=== PATIENT | male | born 1955 | race Caucasian/White ===

== ENCOUNTER 2019-04-13 09:14 | Inpatient (IN) | payer MEDICARE, OTHER ==
[2019-04-13] MEDS ORDERED: NS 0.9% 1000 ML** 1,000 ML IV ONE (09:37)
[2019-04-13] MEDS ORDERED: Clindamycin 900 MG/D5W BAG(*) 900 MG/50 ML BAG IVPB ONE (09:56)
--- NOTE | 2019-04-13 10:01 | ED ---
Skin Complaint - HPI Summary HPI Summary: Pt. is a 63 y.o male who presents to the ER for wound and redness to left great toe x 3 days. Pt. notes a yellow drainage. Pt. has a hx of DM, HLD, depression, and GERD. Pt. Pt. notes he receives his care at an outside hospital in [place]. Pt. states he is chronically on penicillin PO BID prophylactically for cellulitis. Pt. denies injury, fever, vomiting. Sxs are moderate in severity. No current modifying factors. - History of Current Complaint Chief Complaint: EDDiabeticProb Time Seen by Provider: 04/13/19 09:26 Stated Complaint: INFECTED TOE PER PT Hx Obtained From: Patient Pain Intensity: 0 - Allergy/Home Medications Allergies/Adverse Reactions: Allergies Allergy/AdvReac Type Severity Reaction Status Date / Time ketorolac [From Toradol] Allergy Swelling Verified 04/13/19 09:21 Of Face,Lips,& Throat morphine Allergy Nausea And Verified 04/13/19 09:21 Vomiting vancomycin Allergy See Comment Verified 04/13/19 09:21 PMH/Surg Hx/FS Hx/Imm Hx Previously Healthy: Yes Infectious Disease History: No Infectious Disease History: Denies: Traveled Outside the [place] in Last 30 Days - Social History Alcohol Use: None Substance Use Type: Reports: None Smoking Status (MU): Never Smoked Tobacco Review of Systems Constitutional: Negative Negative: Fever, Chills Cardiovascular: Negative Respiratory: Negative Gastrointestinal: Negative Positive: Other - wound and redness to left great toe. Positive: Other - wound and redness to left great toe. All Other Systems Reviewed And Are Negative: Yes Physical Exam Triage Information Reviewed: Yes Vital Signs On Initial Exam: Initial Vitals Temp Pulse Resp BP Pulse Ox 97.4 F 108 18 118/95 96 04/13/19 09:15 04/13/19 09:15 04/13/19 09:15 04/13/19 09:15 04/13/19 09:15 Vital Signs Reviewed: Yes Appearance: Positive: Well-Appearing - Pt. sitting up in bed in NAD. Pleasant. Skin: Positive: Warm, Dry Head/Face: Positive: Normal Head/Face Inspection Eyes: Positive: Normal, EOMI Neck: Positive: Supple Respiratory/Lung Sounds: Positive: Clear to Auscultation, Breath Sounds Present Cardiovascular: Positive: Normal, RRR Musculoskeletal: Positive: Other - Marked erythema and edema to left great toe. Two small wet ulcers to left great toe with yellowish drainage. Good palpable pedal pulse. Chronic discoloration to lower leg. Neurological: Positive: Normal, CN Intact II-III Psychiatric: Positive: Affect/Mood Appropriate Procedures - Sedation Patient Received Moderate/Deep Sedation with Procedure: No Diagnostics - Vital Signs Vital Signs Temp Pulse Resp BP Pulse Ox 04/13/19 09:15 97.4 F 108 18 118/95 96 - Laboratory Result Diagrams: 04/13/19 09:57 04/13/19 09:57 Lab Statement: Any lab studies that have been ordered have been reviewed, and results considered in the medical decision making process. Course/Dx - Course Course Of Treatment: Pt. with infected ulcer to left great toe. Afebrile and well appearing. Mildly tachycardic. Labs and xrays obtained. Pt. given a dose of IV clindamycin to cover MRSA. CBC unremarkable. CRP elevated. Glucose mildly elevated. Xray shows tuft fx and questionable osteo per radiology. Given extend of infection and ?osteo hospitalist was consulted for admission. Case discussed with Dr. Haro who will accept pt. for admission. - Differential Diagnoses - Skin Complaint Differential Diagnoses: Abscess, Cellulitis, MRSA, Systemic Illness - Diagnoses Provider Diagnoses: Infected ulcer of skin, Osteomyelitis Discharge ED - Sign-Out/Discharge Documenting (check all that apply): Patient Departure - Discharge Plan Condition: Stable Disposition: ADMITTED TO [facility] - Billing Disposition and Condition Condition: STABLE Disposition: Admitted to [facility] - Attestation Statements Provider Attestation: I was available for consult. This patient was seen by the [facility]. The patient was not presented to, seen by, or examined by me. Kerwin Magallanes MD
[2019-04-13 10:11] LABS: ABS Basophils 0.1 10^3/ul (0-0.2); ABS Eosinophils 0.1 10^3/ul (0-0.6); ABS Lymphocytes 1.5 10^3/ul (1.0-4.8); ABS Monocytes 0.8 10^3/ul (0-0.8); ABS Neutrophils 4.5 10^3/ul (1.5-7.7); Eosinophil % 1.4 %; Hematocrit 44 % (42-52); Lymphocyte % 21.2 %; Mean Corpuscular HGB Conc 34 g/dL (31-36); Mean Corpuscular Hemoglobin 30 pg (27-31); Mean Corpuscular Volume 87 fL (80-94); Mean Platelet Volume 7.5 fL (7.4-10.4); Nucleated Red Blood Cells % 0.1; Platelet Count 254 10^3/uL (150-450); Red Blood Count 5.07 10^6 /uL (4.18-5.48); Red Cell Distribution Width 13 % (10-15)
[2019-04-13 10:26] LABS: C Reactive Protein 100.44 mg/L (<8.01)
[2019-04-13 11:06] LABS: Albumin 4.1 g/dL (3.2-5.2); Albumin/Globulin Ratio 1.1 (1-3); BUN/Creatinine Ratio 20.4 (8-20); Calcium 9.3 mg/dL (8.6-10.3); EGFR African American 99.9 (>60); EGFR Non-African American 82.6 (>60); Globulin 3.6 g/dL (2-4); Potassium 4.1 mmol/L (3.5-5.0); Total Bilirubin 0.9 mg/dL (0.2-1.0); Total Protein 7.7 g/dL (6.4-8.9)
[2019-04-13] MEDS ORDERED: Acetaminophen TAB* 325 MG PO PRN (12:54)
[2019-04-13] MEDS ORDERED: Dextrose 50% VIAL 50 ml IV PUSH PRN (13:01)
[2019-04-13] MEDS: Heparin VIAL(*) 5000 UNITS/ML VIAL (FIVE THOUSAND) SUBCUT SCH ×2 (14:29→22:43)
[2019-04-13] MEDS: Cefepime 2 GM in Dextrose(*) 2 GM/50 ML BAG IV SCH (14:29)
[2019-04-13] MEDS: metroNIDAZOLE IV 500 MG/100ML* 500 MG/100 ML BAG IVPB SCH ×2 (15:26→22:43)
[2019-04-13] MEDS: Insulin LISPRO* 1 UNITS UNIT SUBCUT SCH (16:53)
--- NOTE | 2019-04-13 17:35 | HP ---
CC: Dr. Boone * HISTORY AND PHYSICAL: DATE OF ADMISSION: 04/13/19 PROVIDER: Dona Johnson NP PRIMARY CARE PROVIDER: Dr. Boone. ATTENDING PHYSICIAN WHILE IN THE HOSPITAL: Dr. Maria C Augustin * (dictated by Dona Johnson NP). CHIEF COMPLAINT: Left toe pain. HISTORY OF PRESENT ILLNESS: Mr. Aponte is a 63-year-old male with a past medical history significant for diabetes and hyperlipidemia who presented to the emergency room with complaints of increased redness and drainage from his left toe. The patient reports that his left toe started getting red 3 to 4 days ago. Due to increased redness, swelling, and drainage, the patient presented to the emergency room for further evaluation. The patient denies any fever, chills, unintended weight loss, chest pain, edema, cough, hemoptysis, shortness of breath. Denies any nausea, vomiting, diarrhea, abdominal pain, hematuria, or dysuria. Denies any focal weakness, sensory loss, visual complaints, dysphagia, arthralgias, myalgias. He does complain of redness, swelling, and drainage from the left great toe. Denies any psychosis or anxiety. While in the emergency room, the patient had routine lab work drawn. He had an x- ray of the toe that showed questionable osteomyelitis. Lab work was within normal limits with the exception of glucose of 159, CRP was 100. Due to the finding of osteomyelitis and infection in left great toe, Hospital Medicine was asked to see and evaluate for admission. PAST MEDICAL HISTORY: Significant for diabetes type II, peripheral neuropathy, depression and hyperlipidemia. PAST SURGICAL HISTORY: Toe amputations on the right, foot surgery bilaterally, history of stomach surgery. HOME MEDICATIONS: Include: 1. Pantoprazole 40 mg p.o. b.i.d. 2. Simvastatin 40 mg p.o. daily. 3. Glimepiride 1 mg p.o. daily. 4. Sertraline 100 mg p.o. daily. 5. Pen-Vee K 500 mg p.o. b.i.d. prophylactically, has been on for 3 years. ALLERGIES: MORPHINE, TORADOL, VANCOMYCIN, per the patient causes red man syndrome and cardiac arrest. FAMILY HISTORY: Mother with stroke, mother with diabetes. Father with COPD. Brother with throat and tongue cancer. SOCIAL HISTORY: Denies any tobacco, alcohol, or illicit drug use. He is single. He lives with his sister. He walks with a cane. He is a full code. Surrogate decision maker in the event he is unable to make his own decision is Jose Martin Bernardo. REVIEW OF SYSTEMS: A 14-point review of systems was completed. All pertinent positives are mentioned in the HPI. PHYSICAL EXAMINATION GENERAL: At this time, Mr. Aponte is a 63-year-old male. He is alert and oriented, resting on the stretcher in the emergency room. He is in no acute distress. He is well developed, well nourished. VITAL SIGNS: Temperature 98.0, pulse 83, respirations are 16, O2 saturation 97% , blood pressure 118/80. HEENT: Head is atraumatic, normocephalic. Eyes: EOMs are intact. Sclerae anicteric and not pale. Oral mucosa appeared to be moist. NECK: Supple. LUNGS: Clear to auscultation bilaterally. No wheezes, rales, or rhonchi. CARDIAC: S1, S2. Regular rate and rhythm. No murmurs, rubs, or gallops. ABDOMEN: Soft and nontender. Bowel sounds are present x4. EXTREMITIES: He is able to move all 4 extremities. There is no clubbing or cyanosis. His left great toe is with erythema and swelling with purulent drainage noted to the base of the toe at plantar aspect of the toe. NEUROLOGIC: He is awake, alert and oriented x3. His speech is clear. Thought process is intact. There are no gross focal deficits. SKIN: Left great toe is with redness, erythema, and purulent drainage noted in the plantar aspect. LABORATORY DATA AND DIAGNOSTIC STUDIES: CBC is within normal limits. White count is 7.0, RBCs are 5.07, hemoglobin 15.0, hematocrit is 44, platelet count 254. Sodium 135, potassium 4.1, chloride 103, carbon dioxide was 23, anion gap was 9, BUN was 19, creatinine 0.93, glucose 159, lactic acid 0.9, calcium 9.3. ASTs are 13, ALTs are 9, alkaline phosphatase is 80. C-reactive protein 100.44. He had an x-ray of his foot, soft tissue swelling in the great toe area. There is a fracture of the tuft of the distal phalanx of the great toe and possible osteomyelitis. ASSESSMENT AND PLAN: Mr. Aponte is a 63-year-old male with a past medical history significant for diabetes and hyperlipidemia who presented to the emergency room with complaints of increased swelling and pain to his left great toe. He will be admitted for: 1. Left great toe infection, diabetic ulcer, suspect osteomyelitis. He will be placed on cefepime and Flagyl the patient does have known reaction to VANCOMYCIN of red man syndrome and cardiac arrest. Blood cultures are currently pending. Wound culture negative for MRSA i will hold off on starting Zyvox at this time. I will get Infectious Disease to consult on the patient. I have called Orthopedics, Dr. uSn will see and evaluate the patient and make further recommendations. He has recommended an MRI of the foot and ABIs which have been ordered. 2. Diabetes Type II. The patient will be placed on lispro sliding scale with Accu-Cheks a.c. I will hold his glimepiride at this time. 3. Hyperlipidemia. He can continue on simvastatin as previously prescribed. 4. Depression. He should continue on sertraline 100 mg p.o. daily. 5. Gastroesophageal reflux disease. He should continue on pantoprazole 40 mg p.o. b.i.d. 6. FEN. He can have consistent carb diet. 7. Code status. He is a full code. 8. DVT prophylaxis. I will place him on heparin subcutaneous. TIME SPENT: Time spent on this admission was 60 minutes, greater than half that time was spent at the bedside reviewing events leading thus far to his hospitalization, performing physical exam, and reviewing my plan of care. I have discussed this with my attending, Dr. Maria C Augustin; she is in agreement with my plan. DONA JOHNSON, MICHAEL [id number]/[facility] #: [id number] LETICIA
[2019-04-13] MEDS: Pantoprazole TAB * 40 MG TAB PO SCH (22:43)
[2019-04-14] MEDS: Cefepime 2 GM in Dextrose(*) 2 GM/50 ML BAG IV SCH ×2 (01:02→13:09)
[2019-04-14] MEDS: Heparin VIAL(*) 5000 UNITS/ML VIAL (FIVE THOUSAND) SUBCUT SCH ×3 (05:47→20:59)
[2019-04-14 05:48] LABS: ABS Basophils 0.1 10^3/ul (0-0.2); ABS Eosinophils 0.2 10^3/ul (0-0.6); ABS Lymphocytes 1.7 10^3/ul (1.0-4.8); ABS Monocytes 0.7 10^3/ul (0-0.8); ABS Neutrophils 2.4 10^3/ul (1.5-7.7); Eosinophil % 3.5 %; Hematocrit 42 % (42-52); Hemoglobin 14.1 g/dL (14.0-18.0); Lymphocyte % 32.6 %; Mean Corpuscular HGB Conc 34 g/dL (31-36); Mean Corpuscular Hemoglobin 29 pg (27-31); Mean Corpuscular Volume 86 fL (80-94); Mean Platelet Volume 7.3 fL (7.4-10.4); Platelet Count 233 10^3/uL (150-450); Red Blood Count 4.83 10^6 /uL (4.18-5.48); Red Cell Distribution Width 13 % (10-15); White Blood Count 5.1 10^3/uL (3.5-10.8)
[2019-04-14 05:57] LABS: BUN/Creatinine Ratio 21.4 (8-20); EGFR African American 138.7 (>60); EGFR Non-African American 114.6 (>60); Potassium 3.8 mmol/L (3.5-5.0)
[2019-04-14] MEDS: metroNIDAZOLE IV 500 MG/100ML* 500 MG/100 ML BAG IVPB SCH ×3 (08:10→23:36)
[2019-04-14] MEDS: Atorvastatin* 20 MG TAB PO SCH (08:13)
[2019-04-14] MEDS: Pantoprazole TAB * 40 MG TAB PO SCH ×2 (08:13→21:00)
[2019-04-14] MEDS: Sertraline* 100 MG TAB PO SCH (08:13)
[2019-04-14] MEDS: Insulin LISPRO* 1 UNITS UNIT SUBCUT SCH ×3 (08:14→17:20)
[2019-04-14] MEDS ORDERED: Influenza VAC *QUAD* 2019-20* 0.5 ML SYRINGE IM ONE (09:00)
--- NOTE | 2019-04-14 10:40 | HP ---
H&P (Free Text) History and Physical: Orthopedic Surgery Consultation Date:04/14/19 Requesting Service: Hospitalist Chief Complaint: left foot infection History: 63-year-old male with diabetic neuropathy who presents with a left hallux infection. He reports increased swelling and redness 3-4 days prior to presentation. He started to develop purulent drainage. He does not recall any injuries. He reports no pain, due to his neuropathy. He denies any prior infections with the toe. He does not recall when the ulcer started. Review of Systems: Negative for fever, recent visual changes, difficulty swallowing, chest pain, shortness of breath, abdominal pain, hematuria, easy bruising, diffuse weakness or lack of coordination, and diffuse rash. PMH: Type 2 Diabetes with neuropathy, hyperlipidemia PSH: Right foot toe amputation, gastric surgery, left foot surgery Medications: Pantoprazole, simvastatin, Glimeperide, Pen-Vee K, sertraline Allergies: Morphine, Toradol, vancomycin SH: No tobacco, alcohol or illicit drug use. He walks with a cane. FH: CVA, diabetes, COPD, cancer. Physical Examination: Constitutional: Temp Pulse Resp BP Pulse Ox 98.9 F 70 18 124/76 97 04/14/19 03:02 04/14/19 03:02 04/14/19 03:02 04/14/19 03:02 04/14/19 03:02 General appearance is healthy and non-septic in no acute distress. Cardiovascular: Pulse examination demonstrates palpable pedal pulses with brisk capillary refill. There are no varicosities. Heart with a regular rate and rhythm. Lung sounds clear bilaterally. Abdomen: Soft and nontender Lymphatic: No lymphadenopathy appreciated. Skin: Bilateral upper and lower extremity examination demonstrates no ulcerative lesions aside from those of the involved extremity detailed below, if present. Psychiatric / Neurological: Appropriate affect. Alert and oriented to person, place and time. There is no significant abnormality in coordination appreciated. Normoreflexive deep tendon reflex of the affected extremity. Musculoskeletal: Bilateral upper extremities and contralateral lower extremity show full range of motion with no evidence of instability and no tenderness with palpation and 5 /5 strength. There is no gross deformity. There is 5/5 motor strength and impaired light touch sensation. Swelling/edema of the left hallux The skin and nails are normal to inspection/palpation without evidence of RSD or lymphadenopathy. 5/40 ankle ROM, stable. There is a 1 cm ulcer at the plantar aspect of the distal hallux on the left. There is gross purulence. The toe is swollen and erythematous. Imaging: X-rays were obtained, and independently interpreted and show cortical disruption at the distal aspect of the distal phalanx of the left great toe. Labs: WBC 5.1 CRP 100 Impression and Plan: 63-year-old man with diabetic neuropathy who presents with a left great toe infection, with likely underlying osteomyelitis. There is a distal ulcer with gross purulence. X-rays concerning for osteomyelitis of the distal phalanx. I recommend an MRI to further evaluate the extent of infection. Even though he has palpable pedal pulses, I would recommend ABIs to screen for peripheral vascular disease. We discussed both nonoperative and operative treatment options at length. We discussed the risks/benefits and pros /cons of these options. We discussed the difficulty of clearing an infection like this with nonoperative treatment measures alone. He understands and would prefer to move forward with surgery, pending the MRI results. At a minimum, he will require a partial left hallux amputation, but if the MRI shows more extensive infection, he may require an entire hallux amputation. He understands and is in agreement with this plan. Please keep him n.p.o. at midnight tonight for possible OR tomorrow. Art Sun MD
--- NOTE | 2019-04-14 17:39 | PN ---
Subjective Date of Service: 04/14/19 Interval History: Patient seen sitting up in bed. Appeared guarded, stated that no matter what, he needed to get home by no later than April 17 due to a personal commitment to a loved one, but did not elaborate on this point. Denied fever/chills, shortness of breath, chest pain, abdominal pain, nausea/vomiting, problems with bowel or bladder. Baseline numbness present to all toes. He felt anxious to get MRI to have a better understanding of how extensive his surgery will be tomorrow. Family History: Unchanged from Admission Social History: Unchanged from Admission Past Medical History: Unchanged from Admission Objective Active Medications: Acetaminophen (Tylenol Tab*) 650 mg PO Q4H PRN PRN Reason: MILD PAIN or TEMP > 100.4 Atorvastatin Calcium (Lipitor*) 20 mg PO DAILY REPLACED BY [facility] Last Admin: 04/14/19 08:13 Dose: 20 mg Dextrose (Dextrose 50% Vial 50 Ml*) 25 ml IV PUSH .FOR FS < 60 - SS PRN PRN Reason: FS < 60 Heparin Sodium (Porcine) (Heparin Vial(*)) 5,000 units SUBCUT Q8HR REPLACED BY [facility] Last Admin: 04/14/19 13:08 Dose: 5,000 units Cefepime HCl (Maxipime 2 Gm In Dextrose Duplex (*)) 2 gm in 50 mls @ 100 mls/ hr IV Q12H REPLACED BY [facility] Last Admin: 04/14/19 13:09 Dose: 100 mls/hr Metronidazole/Sodium Chloride (Flagyl 500 Mg Ivpb*) 500 mg in 100 mls @ 100 mls /hr IVPB Q8H REPLACED BY [facility] Last Admin: 04/14/19 16:03 Dose: 100 mls/hr Insulin Human Lispro (Humalog*) 0 units SUBCUT AC REPLACED BY [facility]; Protocol Last Admin: 04/14/19 17:20 Dose: Not Given Pantoprazole Sodium (Protonix Tab*) 40 mg PO BID REPLACED BY [facility] Last Admin: 04/14/19 08:13 Dose: 40 mg Sertraline HCl (Zoloft*) 100 mg PO DAILY REPLACED BY [facility] Last Admin: 04/14/19 08:13 Dose: 100 mg Oxygen Devices in Use Now: None Appearance: Well groomed, well developed gentleman seen sitting up in bed. No acute distress noted. Eyes: No Scleral Icterus, PERRLA Ears/Nose/Mouth/Throat: NL Teeth, Lips, Gums, Clear Oropharnyx Neck: NL Appearance and Movements; NL JVP, Trachea Midline Respiratory: Symmetrical Chest Expansion and Respiratory Effort, Clear to Auscultation Cardiovascular: NL Sounds; No Murmurs; No JVD, RRR, No Edema Abdominal: NL Sounds; No Tenderness; No Distention Lymphatic: No Cervical Adenopathy Extremities: No Clubbing, Cyanosis Skin: No Nodules or Sclerosis, - - Dressing to left great toe is clean, dry and intact. Neurological: Alert and Oriented x 3, NL Gait, - Lines/Tubes/Other Access: Clean, Dry and Intact Peripheral IV Result Diagrams: 04/14/19 05:34 04/14/19 05:34 Microbiology and Other Data: Microbiology 04/13/19 09:43 Aerobic Blood Culture - Preliminary Blood Venous No Growth Day 1 Anaerobic Blood Culture - Preliminary No Growth Day 1 04/13/19 09:59 Aerobic Blood Culture - Preliminary Blood Venous No Growth Day 1 Anaerobic Blood Culture - Preliminary No Growth Day 1 04/13/19 11:15 Skin and Soft Tissue MRSA/MSSA (PCR - Final Toe - Drainage Mrsa Negative S.aureus Positive Gram Stain - Final Assess/Plan/Problems-Billing Assessment: This is a 63 year old male with a PMH significant for DM and HTN who was admitted on 04/13/19 for left great toe osteomyelitis. Will go to surgery tomorrow with Dr. Flores. - Patient Problems (1) Osteomyelitis of great toe of left foot Current Visit: Yes Status: Acute Code(s): M86.9 - OSTEOMYELITIS, UNSPECIFIED SNOMED Code(s): 397604473 Comment: -Vitals stable, WBC normal. Denies pain. -Awaiting results of DILEEP to assess blood flow. Patient has had previous toe amputations. -MRI scheduled for tomorrow at 0600 which will determin how much will need to be amputated tomorrow by Dr. Flores. Surgery to happen in the afternoon. NPO after midnight, to start normal saline at midnight while NPO. METS of 4. RCRI showed 3.9% risk. EKG ordered for preop. Optimized for surgery. -Continue cefepime and metronidazole. (2) Diabetes type 2, controlled Current Visit: Yes Status: Acute Code(s): E11.9 - TYPE 2 DIABETES MELLITUS WITHOUT COMPLICATIONS SNOMED Code(s): 44934465 Comment: -Fingersticks ACHS with sliding scale lispro coverage. Hold glimepiride for now. (3) GERD (gastroesophageal reflux disease) Current Visit: Yes Status: Acute Code(s): K21.9 - GASTRO-ESOPHAGEAL REFLUX DISEASE WITHOUT ESOPHAGITIS SNOMED Code(s): 204171213 Comment: Asymptomatic. Continue pantoprazole. (4) Hyperlipidemia Current Visit: Yes Status: Acute Code(s): E78.5 - HYPERLIPIDEMIA, UNSPECIFIED SNOMED Code(s): 88658665 Comment: Continue atorvastatin. (5) DVT prophylaxis Current Visit: Yes Status: Acute Code(s): Z29.9 - ENCOUNTER FOR PROPHYLACTIC MEASURES, UNSPECIFIED SNOMED Code(s): 111939893 Comment: -SCD's (6) Full code status Current Visit: Yes Status: Acute Code(s): Z78.9 - OTHER SPECIFIED HEALTH STATUS SNOMED Code(s): 150123068 Status and Disposition: Disposition: Admit inpatient Condition: Fair. Attending: Laurel Berger
[2019-04-15] MEDS ORDERED: NS 0.9% 1000 ML** 1,000 ML IV SCH
[2019-04-15] MEDS: Cefepime 2 GM in Dextrose(*) 2 GM/50 ML BAG IV SCH ×2 (01:38→13:38)
[2019-04-15] MEDS: Heparin VIAL(*) 5000 UNITS/ML VIAL (FIVE THOUSAND) SUBCUT SCH ×3 (05:16→21:48)
[2019-04-15] MEDS ORDERED: Gadoteridol* (CONTRAST) 279.3 MG/ML 10 ML IV ONE (07:17)
[2019-04-15] MEDS: Insulin LISPRO* 1 UNITS UNIT SUBCUT SCH ×3 (08:31→17:07)
[2019-04-15] MEDS: Sertraline* 100 MG TAB PO SCH (09:21)
[2019-04-15] MEDS: Pantoprazole TAB * 40 MG TAB PO SCH ×2 (09:21→21:48)
[2019-04-15] MEDS: metroNIDAZOLE IV 500 MG/100ML* 500 MG/100 ML BAG IVPB SCH ×2 (09:21→16:43)
[2019-04-15] MEDS: Atorvastatin* 20 MG TAB PO SCH (09:21)
--- NOTE | 2019-04-15 09:22 | PN ---
Subjective Date of Service: 04/15/19 Interval History: Patient doing well today. Denies any chest pain, shortness of breath, fever, chills, abdominal pain, nausea, vomiting or bowel/bladder issues. Has not had a bowel movement in two days, states that is not unusual for him, denies feeling constipated. Patient states he feels ready for surgery, still maintains he wants to go home on 04/17. 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 Family History: Unchanged from Admission Social History: Unchanged from Admission Past Medical History: Unchanged from Admission Objective Active Medications: Acetaminophen (Tylenol Tab*) 650 mg PO Q4H PRN PRN Reason: MILD PAIN or TEMP > 100.4 Atorvastatin Calcium (Lipitor*) 20 mg PO DAILY [facility] Last Admin: 04/14/19 08:13 Dose: 20 mg Dextrose (Dextrose 50% Vial 50 Ml*) 25 ml IV PUSH .FOR FS < 60 - SS PRN PRN Reason: FS < 60 Heparin Sodium (Porcine) (Heparin Vial(*)) 5,000 units SUBCUT Q8HR [facility] Last Admin: 04/15/19 05:16 Dose: Not Given Cefepime HCl (Maxipime 2 Gm In Dextrose Duplex (*)) 2 gm in 50 mls @ 100 mls/ hr IV Q12H [facility] Last Admin: 04/15/19 01:38 Dose: 100 mls/hr Metronidazole/Sodium Chloride (Flagyl 500 Mg Ivpb*) 500 mg in 100 mls @ 100 mls /hr IVPB Q8H [facility] Last Admin: 04/14/19 23:36 Dose: 100 mls/hr Sodium Chloride (Ns 0.9% 1000 Ml) 1,000 mls @ 75 mls/hr IV PER RATE [facility] Stop: 04/15/19 13:19 Last Admin: 04/14/19 23:36 Dose: 75 mls/hr Insulin Human Lispro (Humalog*) 0 units SUBCUT [facility]; Protocol Last Admin: 04/15/19 08:31 Dose: Not Given Pantoprazole Sodium (Protonix Tab*) 40 mg PO BID [facility] Last Admin: 04/14/19 21:00 Dose: 40 mg Sertraline HCl (Zoloft*) 100 mg PO DAILY [facility] Last Admin: 04/14/19 08:13 Dose: 100 mg Vital Signs - 8 hr 04/15/19 04/15/19 03:05 07:00 Temperature 96.9 F 98.1 F Pulse Rate 65 66 Respiratory 20 12 Rate Blood Pressure 118/65 114/76 (mmHg) O2 Sat by Pulse 97 99 Oximetry Oxygen Devices in Use Now: None Appearance: Well-developed, well-groomed gentleman seen sitting up in bed. No acute distress. Eyes: No Scleral Icterus, PERRLA Ears/Nose/Mouth/Throat: NL Teeth, Lips, Gums, Clear Oropharnyx, Mucous Membranes Moist Neck: NL Appearance and Movements; NL JVP, Trachea Midline Respiratory: Symmetrical Chest Expansion and Respiratory Effort, Clear to Auscultation Cardiovascular: NL Sounds; No Murmurs; No JVD, RRR, No Edema Abdominal: NL Sounds; No Tenderness; No Distention Lymphatic: No Cervical Adenopathy Extremities: No Edema, No Clubbing, Cyanosis Skin: - - Left great toe nail bed draining scant bloody/purulent drainage. Left great to red, swollen. Neurological: Alert and Oriented x 3, - - Baseline numbness to all toes. Lines/Tubes/Other Access: Clean, Dry and Intact Peripheral IV Result Diagrams: 04/14/19 05:34 04/14/19 05:34 Microbiology and Other Data: Microbiology 04/13/19 09:43 Aerobic Blood Culture - Preliminary Blood Venous No Growth Day 1 Anaerobic Blood Culture - Preliminary No Growth Day 1 04/13/19 09:59 Aerobic Blood Culture - Preliminary Blood Venous No Growth Day 1 Anaerobic Blood Culture - Preliminary No Growth Day 1 04/13/19 11:15 Skin and Soft Tissue MRSA/MSSA (PCR - Final Toe - Drainage Mrsa Negative S.aureus Positive Gram Stain - Final Assess/Plan/Problems-Billing Assessment: This is a 63 year old male with a PMH significant for DM and HTN who was admitted on 04/13/19 for left great toe osteomyelitis. Will go to surgery tomorrow with Dr. Flores. - Patient Problems (1) Osteomyelitis of great toe of left foot Current Visit: Yes Status: Acute Code(s): M86.9 - OSTEOMYELITIS, UNSPECIFIED SNOMED Code(s): 580241424 Comment: -Vitals stable, WBC normal. Denies pain. -DILEEP's revealed no compelling evidence for hemodynamicly significant inflow disease or significant large vessel intrinsic lower extremity stenosis. -MRI revealed osteomyelitis and abscess of left great toe distal phalanx. Dr. Flores to take patient to surgery later today. METS of 4. RCRI showed 3.9% risk. EKG ordered for preop. Optimized for surgery. -Continue cefepime and metronidazole. (2) Diabetes type 2, controlled Current Visit: Yes Status: Acute Code(s): E11.9 - TYPE 2 DIABETES MELLITUS WITHOUT COMPLICATIONS SNOMED Code(s): 76459135 Comment: -Fingersticks ACHS with sliding scale lispro coverage. Hold glimepiride for now. (3) GERD (gastroesophageal reflux disease) Current Visit: Yes Status: Acute Code(s): K21.9 - GASTRO-ESOPHAGEAL REFLUX DISEASE WITHOUT ESOPHAGITIS SNOMED Code(s): 869909910 Comment: Asymptomatic. Continue pantoprazole. (4) Hyperlipidemia Current Visit: Yes Status: Acute Code(s): E78.5 - HYPERLIPIDEMIA, UNSPECIFIED SNOMED Code(s): 74676623 Comment: Continue atorvastatin. (5) DVT prophylaxis Current Visit: Yes Status: Acute Code(s): Z29.9 - ENCOUNTER FOR PROPHYLACTIC MEASURES, UNSPECIFIED SNOMED Code(s): 371803031 Comment: -SCD's (6) Full code status Current Visit: Yes Status: Acute Code(s): Z78.9 - OTHER SPECIFIED HEALTH STATUS SNOMED Code(s): 326340457 Status and Disposition: Disposition: Admit inpatient Condition: Fair. Attending: Baldev Campbell
[2019-04-15] MEDS ORDERED: Midazolam* 1 MG/ML 2 ML VIAL (2 MG) ONE (14:21)
[2019-04-15] MEDS ORDERED: Propofol* 10 MG/ML 20 ML BTL ONE (14:22)
[2019-04-15] MEDS ORDERED: Bupivacaine 0.25% SDV PF* 10 ML VIAL INJ ONE (14:35)
[2019-04-15] MEDS ORDERED: diPHENhydraMINE IV* 50 MG/ML 1 ml VIAL (BENADRYL) IV PRN (15:11)
[2019-04-15] MEDS ORDERED: Ondansetron INJ* 2 MG/ML VIAL IV PRN (15:11)
[2019-04-15] MEDS ORDERED: Naloxone* 0.4 MG/ML 1 ML VIAL IV PRN (15:11)
[2019-04-15] MEDS ORDERED: oxyCODONE TAB* 5 MG TAB PO PRN (15:11)
[2019-04-15] MEDS ORDERED: Acetaminophen TAB* 325 MG PO PRN (15:11)
--- NOTE | 2019-04-15 19:20 | CONS ---
CONSULTATION REPORT: DATE OF CONSULT: 04/15/19 PRIMARY CARE PROVIDER: Dr. Godoy at [facility]. PROVIDER REQUESTING CONSULTATION: Dona Johsnon NP CONSULTING SERVICE: Infectious Disease. PROVIDER: Yumiko Clinton NP ATTENDING PROVIDER: Dr. Colin Norman * (dictated by Yumiko Clinton NP). REASON FOR CONSULTATION: Left first toe osteomyelitis. IMPRESSION: 1. Left first toe osteomyelitis. There are chronic changes seen on plain film x- ray in addition to MRI showing osteomyelitis of the distal phalanx of the left first toe with an abscess involving the distal phalanx. Blood cultures with no growth and wound culture from the left first toe showing 4+ neutrophils , 4+ gram- positive cocci. 2. Diabetes mellitus type 2 with peripheral neuropathy. 3. Morbid obesity. BMI of 32. RECOMMENDATIONS/PLAN: Recommend continuing cefepime and Flagyl. The patient is going to the OR for a partial left first toe amputation later today. The patient will likely need an extended course of IV antibiotics 4 to 6 weeks to treat the osteomyelitis. Further recommendations will be based upon the findings in the operating room, culture results, and clinical course. HISTORY OF PRESENT ILLNESS: Mr. Aponte is a 63-year-old male with past medical history significant for diabetes mellitus type 2, hyperlipidemia, peripheral neuropathy and recurrent cellulitis on prophylactic penicillin; who states that while at a football game, his toe was stepped on Monday. When he got home from this event and took his sock off, he had significant bleeding from the toe, with blood on his sock. His sister who is a nurse bandaged up the foot. By the next day, the toe was red and swollen, so he presented to the emergency room for further evaluation. He denies any symptoms of fevers, chills , nausea, vomiting, or diarrhea. He reports having an ulcer on the left 1st toe for awhile. While in the emergency room, he had an x-ray of the left foot showing soft tissue swelling of the great toe with a fracture of the tuft of the distal phalanx of the great toe and possible osteomyelitis. He had a CRP of 100 and the rest of his laboratory data was relatively unremarkable and he was referred to the hospitalist for admission. While in the hospital, he has been on cefepime and Flagyl. He had an MRI of the left foot showing osteomyelitis of the distal phalanx of the left first toe with an abscess involving the distal half of the distal phalanx. The patient continues to be afebrile with no leukocytosis. PAST MEDICAL HISTORY: 1. Diabetes mellitus type 2. 2. Hyperlipidemia. 3. Peripheral neuropathy. 4. Recurrent cellulitis, on prophylactic penicillin for 3 years PAST SURGICAL HISTORY: 1. Status post right toe amputation. 2. Status post bilateral foot surgery. 3. Status post stomach surgery. MEDICATIONS: Home medications include: 1. Pantoprazole 40 mg by mouth twice daily. 2. Simvastatin 40 mg by mouth daily. 3. Glimepiride 1 mg by mouth daily. 4. Sertraline 100 mg by mouth daily. 5. Pen-Vee K 500 mg by mouth twice daily, prophylactic for cellulitis, has been taking for 3 years. ALLERGIES: MORPHINE, TORADOL, VANCOMYCIN caused red man syndrome and cardiac arrest. FAMILY HISTORY: He denies family history of recurrent or resistant infections. Father with a history of COPD. No family history of coronary artery disease. Mother with a history of diabetes and stroke. Brother with a history of throat and tongue cancer. SOCIAL HISTORY: Denies alcohol, tobacco, or recreational drug use. REVIEW OF SYSTEMS: I performed a 10-point review of systems. All the pertinent positives and negatives are mentioned in the history of present illness. The remaining review of systems are negative. He denies any recent travel. Reports peripheral neuropathy in bilateral lower extremities. PHYSICAL EXAM: Vital Signs: Temperature 98.1, heart rate 66, respiratory rate 12, O2 sat 99% on room air, blood pressure 114/76. General Appearance: No acute distress, sitting up in bed. Head: Normocephalic, atraumatic. EENT: Extraocular movements are intact. No subconjunctival hemorrhage. Moist mucous membranes. Neurological: Alert and oriented. Cranial nerves II through XII are grossly intact. Moves all extremities. Cardiovascular: Regular rate and rhythm. S1 and S2 present. No murmurs, rubs, or gallops heard. Respiratory: No accessory muscle use. The lungs are clear to auscultation bilaterally. Abdomen: Bowel sounds present. Abdomen is soft, nontender, nondistended. Extremities: No lower extremity edema. DP and PT pulses are 2+ and symmetric. Musculoskeletal: No clubbing or cyanosis noted. The patient exhibits good strength in all extremities. Psychological: Calm and cooperative. Skin: No rashes seen. He has an ulcer with purulent drainage to the plantar aspect of the left first toe. The surrounding skin is intact. There is no erythema. DIAGNOSTIC STUDIES/LAB DATA: From 04/14/19, sodium 135, potassium 3.8, chloride 104, CO2 of 24, BUN 15, creatinine 0.70, glucose 144. White blood cell count 5.1, hemoglobin 14.1, hematocrit 42, platelet count 233. CRP on of 100.44. Please see impression and recommendations outlined above. The recommendations have been reviewed with LESLEY Blank. Thank you for asking us to see Mr. Aponte in consultation. The case has been reviewed with my attending, Dr. Colin Norman, who agrees with the plan of care. Reviewed by YUMIKO CLINTON, YOLY-C 04/21/19 1307 [id number]/[facility] #: [id number] MTDD
--- NOTE | 2019-04-15 22:08 | OP ---
DATE OF OPERATION: 04/15/19 - ROOM #[id number] DATE OF : 59 SURGEON: Davis Flores MD JOURNEYMAN MACHINIST: Kaden Chen PA-C PRE-OP DIAGNOSIS: Osteomyelitis, left great toe, including distal and proximal phalanges. POST-OP DIAGNOSIS: Osteomyelitis, left great toe, including distal and proximal phalanges. OPERATIVE PROCEDURE: Disarticulation, left great toe MTP joint. DESCRIPTION OF PROCEDURE: The patient was taken to the operating room where a transverse elliptical incision was made over the proximal phalanx of the left great toe. We dissected subperiosteally to allow disarticulation of the proximal phalanx. We then dropped the tourniquet, irrigated thoroughly, closing after cultures were sent. Hemostasis obtained and dorsal to plantar closure of 2-0 Monocryl, 2-0 Prolene was performed with a compression dressing applied. [id number]/[facility] #: [id number] MTDD
[2019-04-16] MEDS: metroNIDAZOLE IV 500 MG/100ML* 500 MG/100 ML BAG IVPB SCH ×3 (00:49→17:21)
[2019-04-16] MEDS: Cefepime 2 GM in Dextrose(*) 2 GM/50 ML BAG IV SCH ×2 (02:50→13:42)
[2019-04-16] MEDS: Heparin VIAL(*) 5000 UNITS/ML VIAL (FIVE THOUSAND) SUBCUT SCH ×3 (05:33→21:24)
[2019-04-16] MEDS: Insulin LISPRO* 1 UNITS UNIT SUBCUT SCH ×3 (07:53→17:16)
[2019-04-16] MEDS: Sertraline* 100 MG TAB PO SCH (08:43)
[2019-04-16] MEDS: Atorvastatin* 20 MG TAB PO SCH (08:43)
[2019-04-16] MEDS: Pantoprazole TAB * 40 MG TAB PO SCH ×2 (08:43→21:24)
--- NOTE | 2019-04-16 12:49 | PN ---
Progress Note - Progress Note Date of Service: 04/16/19 SOAP: Subjective: CC: Left 1st toe infection HPI: Mr. Aponte is a 63 yo male with PMH significant for DM2, HLD, peripheral neuropathy, and recurrent cellullitis on prophylactic PCN. Denies fever, chills , nausea, vomiting, diarrhea, or pain. No rash or side effects from ABX. Objective: Vital Signs - 8 hr 04/16/19 04/16/19 07:40 07:53 Temperature 97.9 F Pulse Rate 63 Respiratory 18 14 Rate Blood Pressure 110/78 (mmHg) O2 Sat by Pulse 99 99 Oximetry Physical Exam: General: NAD, sitting up chair Neurological: Alert and Oriented HEENT: Moist MM, no thrush Cardiovascular: Heart rate regular Respiratory: Lung sounds clear Abdominal: Bowel sounds present; ABD soft, non tender and non distended Skin: No rash Laboratory Last Values WBC 5.1 10^3/uL (3.5-10.8) 04/14/19 05:34 RBC 4.83 10^6 /uL (4.18-5.48) 04/14/19 05:34 Hgb 14.1 g/dL (14.0-18.0) 04/14/19 05:34 Hct 42 % (42-52) 04/14/19 05:34 MCV 86 fL (80-94) 04/14/19 05:34 MCH 29 pg (27-31) 04/14/19 05:34 MCHC 34 g/dL (31-36) 04/14/19 05:34 RDW 13 % (10-15) 04/14/19 05:34 Plt Count 233 10^3/uL (150-450) 04/14/19 05:34 MPV 7.3 fL (7.4-10.4) L 04/14/19 05:34 Neut % (Auto) 47.5 % 04/14/19 05:34 Lymph % (Auto) 32.6 % 04/14/19 05:34 [place] % (Auto) 13.9 % 04/14/19 05:34 Eos % (Auto) 3.5 % 04/14/19 05:34 Baso % (Auto) 2.5 % 04/14/19 05:34 Absolute Neuts (auto) 2.4 10^3/ul (1.5-7.7) 04/14/19 05:34 Absolute Lymphs (auto) 1.7 10^3/ul (1.0-4.8) 04/14/19 05:34 Absolute Monos (auto) 0.7 10^3/ul (0-0.8) 04/14/19 05:34 Absolute Eos (auto) 0.2 10^3/ul (0-0.6) 04/14/19 05:34 Absolute Basos (auto) 0.1 10^3/ul (0-0.2) 04/14/19 05:34 Absolute Nucleated RBC 0.0 10^3/ul 04/14/19 05:34 Nucleated RBC % 0.0 04/14/19 05:34 Sodium 135 mmol/L (135-145) 04/14/19 05:34 Potassium 3.8 mmol/L (3.5-5.0) 04/14/19 05:34 Chloride 104 mmol/L (101-111) 04/14/19 05:34 Carbon Dioxide 24 mmol/L (22-32) 04/14/19 05:34 Anion Gap 7 mmol/L (2-11) 04/14/19 05:34 BUN 15 mg/dL (6-24) 04/14/19 05:34 Creatinine 0.70 mg/dL (0.67-1.17) 04/14/19 05:34 Est GFR ( Amer) 138.7 (>60) 04/14/19 05:34 Est GFR (Non-Af Amer) 114.6 (>60) 04/14/19 05:34 BUN/Creatinine Ratio 21.4 (8-20) H 04/14/19 05:34 Glucose 144 mg/dL (70-100) H 04/14/19 05:34 POC Glucose (mg/dL) 104 mg/dL (70-100) H 04/16/19 11:53 Hemoglobin A1c 7.6 % (4.0-5.6) H 04/14/19 05:34 Lactic Acid 0.9 mmol/L (0.5-2.0) 04/13/19 09:57 Calcium 9.0 mg/dL (8.6-10.3) 04/14/19 05:34 Total Bilirubin 0.90 mg/dL (0.2-1.0) 04/13/19 09:57 AST 13 U/L (13-39) 04/13/19 09:57 ALT 9 U/L (7-52) 04/13/19 09:57 Alkaline Phosphatase 80 U/L (34-104) 04/13/19 09:57 C-Reactive Protein 100.44 mg/L (<8.01) H 04/13/19 09:57 Total Protein 7.7 g/dL (6.4-8.9) 04/13/19 09:57 Albumin 4.1 g/dL (3.2-5.2) 04/13/19 09:57 Globulin 3.6 g/dL (2-4) 04/13/19 09:57 Albumin/Globulin Ratio 1.1 (1-3) 04/13/19 09:57 Microbiology 04/15/19 15:14 Anaerobic Culture - Preliminary Wound No Growth Day 1 04/15/19 15:14 Gram Stain - Final Toe Wound Culture - Preliminary No Growth Day 1 04/13/19 09:43 Aerobic Blood Culture - Preliminary Blood Venous No Growth Day 3 Anaerobic Blood Culture - Preliminary No Growth Day 3 04/13/19 09:59 Aerobic Blood Culture - Preliminary Blood Venous No Growth Day 3 Anaerobic Blood Culture - Preliminary No Growth Day 3 04/13/19 11:15 Skin and Soft Tissue MRSA/MSSA (PCR - Final Toe - Drainage Mrsa Negative S.aureus Positive Gram Stain - Final Wound Culture - Preliminary Gemella Haemolysans Assessment: 1. Right 1st toe osteomyelitis. Xray and MRI with osteomyelitis in the distal phalanx. S/P 1st 1st toe disarticulation at the MTP joint, POD #1. Afebrile and no leukocytosis. Wound culture with PCR positive for staph aureus and gemella haemolysana. 2. DM2 with peripheral neuropathy. Plan: Continue cefepime today and change to Ceftriaxone 2 gm IV daily in the AM. Continue Flagyl 500 mg TID, change to PO at discharge. PICC line will need to be placed. Will plan on 28 days of IV ABX, day 2. Will need weekly labs while on IV ABX: CBC, CMP, and CRP. Followup with ID in 1-2 weeks. 25 minutes floor time, > 50% was spent with the patient discussing long course of ABX, risk of ABX, followup, and when to call the office. Will call the office for fever, rash or diarrhea.
--- NOTE | 2019-04-16 14:20 | PN ---
Progress Note - Progress Note Date of Service: 04/16/19 SOAP: Subjective: []Pt seen at bedside. He is feeling well without complaints. No pain of LLE. Has LLE neuropathy at baseline. Denies DP, SOB, dizziness, nausea. Objective: [] Gen: Appears well, NAD LLE: dressing CDI, insensate remaining toes which is baseline, cap refill less than two seconds distally, f/e MTPs intact Assessment: [] Osteomyelitis, left great toe, including distal and proximal phalanges. POD 1 sp Disarticulation, left great toe MTP joint. Plan: []Heel WB Change dressing prior to DC Pt strongly desires DC tomorrow, okay from ortho standpoint as long as abx set up DVT prophy: ASA 325 qd Vital Signs Temp 97.8 F 04/16/19 11:40 Pulse 73 04/16/19 11:40 Resp 18 04/16/19 11:40 BP 128/80 04/16/19 11:40 Pulse Ox 94 04/16/19 11:40 Intake & Output 04/15/19 04/16/19 04/16/19 18:59 06:59 18:59 Intake Total 1470 1673 1560 Output Total 800 1012 Balance 824 548 4713 Weight 330 lb Intake: IV Fluids 850 45 LR 200 NS (0.9%) 650 45 IVPB 200 188 ABX - CEFEPIME 100 63 ABX - FLAGYL 100 125 Oral 420 1440 1560 Output: Urine 800 1012 Other: Estimated Void Medium # Bowel Movements 0 Estimated Blood Loss MINIMAL Comment # Voids 3 Laboratory Last Values WBC 5.1 10^3/uL (3.5-10.8) 04/14/19 05:34 RBC 4.83 10^6 /uL (4.18-5.48) 04/14/19 05:34 Hgb 14.1 g/dL (14.0-18.0) 04/14/19 05:34 Hct 42 % (42-52) 04/14/19 05:34 MCV 86 fL (80-94) 04/14/19 05:34 MCH 29 pg (27-31) 04/14/19 05:34 MCHC 34 g/dL (31-36) 04/14/19 05:34 RDW 13 % (10-15) 04/14/19 05:34 Plt Count 233 10^3/uL (150-450) 04/14/19 05:34 MPV 7.3 fL (7.4-10.4) L 04/14/19 05:34 Neut % (Auto) 47.5 % 04/14/19 05:34 Lymph % (Auto) 32.6 % 04/14/19 05:34 [place] % (Auto) 13.9 % 04/14/19 05:34 Eos % (Auto) 3.5 % 04/14/19 05:34 Baso % (Auto) 2.5 % 04/14/19 05:34 Absolute Neuts (auto) 2.4 10^3/ul (1.5-7.7) 04/14/19 05:34 Absolute Lymphs (auto) 1.7 10^3/ul (1.0-4.8) 04/14/19 05:34 Absolute Monos (auto) 0.7 10^3/ul (0-0.8) 04/14/19 05:34 Absolute Eos (auto) 0.2 10^3/ul (0-0.6) 04/14/19 05:34 Absolute Basos (auto) 0.1 10^3/ul (0-0.2) 04/14/19 05:34 Absolute Nucleated RBC 0.0 10^3/ul 04/14/19 05:34 Nucleated RBC % 0.0 04/14/19 05:34 Sodium 135 mmol/L (135-145) 04/14/19 05:34 Potassium 3.8 mmol/L (3.5-5.0) 04/14/19 05:34 Chloride 104 mmol/L (101-111) 04/14/19 05:34 Carbon Dioxide 24 mmol/L (22-32) 04/14/19 05:34 Anion Gap 7 mmol/L (2-11) 04/14/19 05:34 BUN 15 mg/dL (6-24) 04/14/19 05:34 Creatinine 0.70 mg/dL (0.67-1.17) 04/14/19 05:34 Est GFR ( Amer) 138.7 (>60) 04/14/19 05:34 Est GFR (Non-Af Amer) 114.6 (>60) 04/14/19 05:34 BUN/Creatinine Ratio 21.4 (8-20) H 04/14/19 05:34 Glucose 144 mg/dL (70-100) H 04/14/19 05:34 POC Glucose (mg/dL) 104 mg/dL (70-100) H 04/16/19 11:53 Hemoglobin A1c 7.6 % (4.0-5.6) H 04/14/19 05:34 Lactic Acid 0.9 mmol/L (0.5-2.0) 04/13/19 09:57 Calcium 9.0 mg/dL (8.6-10.3) 04/14/19 05:34 Total Bilirubin 0.90 mg/dL (0.2-1.0) 04/13/19 09:57 AST 13 U/L (13-39) 04/13/19 09:57 ALT 9 U/L (7-52) 04/13/19 09:57 Alkaline Phosphatase 80 U/L (34-104) 04/13/19 09:57 C-Reactive Protein 100.44 mg/L (<8.01) H 04/13/19 09:57 Total Protein 7.7 g/dL (6.4-8.9) 04/13/19 09:57 Albumin 4.1 g/dL (3.2-5.2) 04/13/19 09:57 Globulin 3.6 g/dL (2-4) 04/13/19 09:57 Albumin/Globulin Ratio 1.1 (1-3) 04/13/19 09:57
[2019-04-16 16:12] LABS: ABS Basophils 0.1 10^3/ul (0-0.2); ABS Eosinophils 0.1 10^3/ul (0-0.6); ABS Lymphocytes 1.8 10^3/ul (1.0-4.8); ABS Monocytes 0.5 10^3/ul (0-0.8); ABS Neutrophils 3.1 10^3/ul (1.5-7.7); Eosinophil % 1.8 %; Hematocrit 44 % (42-52); Hemoglobin 15.1 g/dL (14.0-18.0); Lymphocyte % 32.2 %; Mean Corpuscular HGB Conc 34 g/dL (31-36); Mean Corpuscular Hemoglobin 30 pg (27-31); Mean Corpuscular Volume 87 fL (80-94); Mean Platelet Volume 7.2 fL (7.4-10.4); Platelet Count 270 10^3/uL (150-450); Red Cell Distribution Width 13 % (10-15); White Blood Count 5.7 10^3/uL (3.5-10.8)
[2019-04-16 16:29] LABS: Activated Partial Thrombo Time 39.2 seconds (26.0-38.0); EGFR African American 110.9 (>60); EGFR Non-African American 91.6 (>60); INR 1.07 (0.82-1.09)
--- NOTE | 2019-04-16 17:17 | PN ---
Subjective Date of Service: 04/16/19 Interval History: reports that he is waiting for a PICC. Had surgery yesterday. No complaints of pain. Denies chest pain or shortness of breath. Denies n/v/d. Denies abd pain pain Denies fever or chills overnight Family History: Unchanged from Admission Social History: Unchanged from Admission Past Medical History: Unchanged from Admission Objective Active Medications: Acetaminophen (Tylenol Tab*) 650 mg PO Q4H PRN PRN Reason: MILD PAIN or TEMP > 100.4 Atorvastatin Calcium (Lipitor*) 20 mg PO DAILY [facility] Last Admin: 04/16/19 08:43 Dose: 20 mg Dextrose (Dextrose 50% Vial 50 Ml*) 25 ml IV PUSH .FOR FS < 60 - SS PRN PRN Reason: FS < 60 Heparin Sodium (Porcine) (Heparin Vial(*)) 5,000 units SUBCUT Q8HR [facility] Last Admin: 04/16/19 13:42 Dose: 5,000 units Heparin Sodium (Porcine) (Heparin Flush Picc/Ml/Cvc(*)) 1 - 3 ml FLUSH 0600, 1800 [facility]; Protocol Cefepime HCl (Maxipime 2 Gm In Dextrose Duplex (*)) 2 gm in 50 mls @ 100 mls/ hr IV Q12H [facility] Stop: 04/17/19 03:00 Last Admin: 04/16/19 13:42 Dose: 100 mls/hr Metronidazole/Sodium Chloride (Flagyl 500 Mg Ivpb*) 500 mg in 100 mls @ 100 mls /hr IVPB Q8H [facility] Last Admin: 04/16/19 08:43 Dose: 100 mls/hr Ceftriaxone Sodium 2 gm/ (Sodium Chloride) 100 mls @ 200 mls/hr IVPB Q24H [facility] Insulin Human Lispro (Humalog*) 0 units SUBCUT AC [facility]; Protocol Last Admin: 04/16/19 12:05 Dose: Not Given Pantoprazole Sodium (Protonix Tab*) 40 mg PO BID [facility] Last Admin: 04/16/19 08:43 Dose: 40 mg Sertraline HCl (Zoloft*) 100 mg PO DAILY [facility] Last Admin: 04/16/19 08:43 Dose: 100 mg Vital Signs - 8 hr 04/16/19 04/16/19 11:40 15:28 Temperature 97.8 F Pulse Rate 73 Respiratory 18 Rate Blood Pressure 128/80 (mmHg) O2 Sat by Pulse 94 94 Oximetry Oxygen Devices in Use Now: None Eyes: No Scleral Icterus Ears/Nose/Mouth/Throat: Clear Oropharnyx, Mucous Membranes Moist Neck: NL Appearance and Movements; NL JVP, Trachea Midline Respiratory: Symmetrical Chest Expansion and Respiratory Effort, Clear to Auscultation Cardiovascular: NL Sounds; No Murmurs; No JVD, No Edema Abdominal: NL Sounds; No Tenderness; No Distention Extremities: No Edema, No Clubbing, Cyanosis, - Skin: - - dressing dry and intact to left foot Neurological: Alert and Oriented x 3 Nutrition: Taking PO's Result Diagrams: 04/16/19 15:51 04/16/19 15:51 Microbiology and Other Data: Microbiology 04/13/19 09:43 Aerobic Blood Culture - Preliminary Blood Venous No Growth Day 1 Anaerobic Blood Culture - Preliminary No Growth Day 1 04/13/19 09:59 Aerobic Blood Culture - Preliminary Blood Venous No Growth Day 1 Anaerobic Blood Culture - Preliminary No Growth Day 1 04/13/19 11:15 Skin and Soft Tissue MRSA/MSSA (PCR - Final Toe - Drainage Mrsa Negative S.aureus Positive Gram Stain - Final Assess/Plan/Problems-Billing Assessment: This is a 63 year old male with a PMH significant for DM and HTN who was admitted on 04/13/19 for left great toe osteomyelitis. Will go to surgery tomorrow with Dr. Flores. - Patient Problems (1) Osteomyelitis of great toe of left foot Current Visit: Yes Status: Acute Code(s): M86.9 - OSTEOMYELITIS, UNSPECIFIED SNOMED Code(s): 580371357 Comment: -Vitals stable, WBC normal. Denies pain. -DILEEP's - no evidence of stenosis, venous insuffiency -MRI revealed osteomyelitis and abscess of left great toe distal phalanx- surgery completed yesterday -Continue cefepime and metronidazole.- will change to ceftriaxone 2 grams and flagyl po for outpatient management (2) Diabetes type 2, controlled Current Visit: Yes Status: Acute Code(s): E11.9 - TYPE 2 DIABETES MELLITUS WITHOUT COMPLICATIONS SNOMED Code(s): 35587032 Comment: -Fingersticks ACHS with sliding scale lispro coverage. Hold glimepiride for now. (3) GERD (gastroesophageal reflux disease) Current Visit: Yes Status: Acute Code(s): K21.9 - GASTRO-ESOPHAGEAL REFLUX DISEASE WITHOUT ESOPHAGITIS SNOMED Code(s): 093792855 Comment: Asymptomatic. Continue pantoprazole. (4) Hyperlipidemia Current Visit: Yes Status: Acute Code(s): E78.5 - HYPERLIPIDEMIA, UNSPECIFIED SNOMED Code(s): 58397074 Comment: Continue atorvastatin. (5) DVT prophylaxis Current Visit: Yes Status: Acute Code(s): Z29.9 - ENCOUNTER FOR PROPHYLACTIC MEASURES, UNSPECIFIED SNOMED Code(s): 224811029 Comment: -SCD's (6) Depression Current Visit: Yes Status: Acute Code(s): F32.9 - MAJOR DEPRESSIVE DISORDER , SINGLE EPISODE, UNSPECIFIED SNOMED Code(s): 49560111 Comment: continue sertraline (7) Full code status Current Visit: Yes Status: Acute Code(s): Z78.9 - OTHER SPECIFIED HEALTH STATUS SNOMED Code(s): 577418626 Status and Disposition: Disposition: Admit inpatient Condition: Fair.
[2019-04-16] MEDS ORDERED: Heparin VIAL(*) 5000 UNITS/ML VIAL (FIVE THOUSAND) SUBCUT SCH (22:00)
[2019-04-17] MEDS: metroNIDAZOLE IV 500 MG/100ML* 500 MG/100 ML BAG IVPB SCH ×2 (00:58→08:37)
[2019-04-17] MEDS: Cefepime 2 GM in Dextrose(*) 2 GM/50 ML BAG IV SCH (02:26)
[2019-04-17] MEDS: Heparin VIAL(*) 5000 UNITS/ML VIAL (FIVE THOUSAND) SUBCUT SCH (05:15)
[2019-04-17] MEDS ORDERED: cefTRIAXone(*) 2 GM in NS 0.9% 100 ML* 100 ML IVPB SCH (08:00)
[2019-04-17] MEDS: Atorvastatin* 20 MG TAB PO SCH (09:11)
[2019-04-17] MEDS: Sertraline* 100 MG TAB PO SCH (09:11)
[2019-04-17] MEDS: Insulin LISPRO* 1 UNITS UNIT SUBCUT SCH ×2 (09:11→12:34)
[2019-04-17] MEDS: Pantoprazole TAB * 40 MG TAB PO SCH (09:11)
[2019-04-17 12:17] VITALS: BP 114/70
--- NOTE | 2019-04-17 13:36 | DS ---
DISCHARGE SUMMARY: DATE OF ADMISSION: 04/13/19 DATE OF DISCHARGE: 04/17/19 PROVIDER: Dona Johnson NP. PRIMARY CARE PROVIDER: Dr. Boone. ATTENDING PHYSICIAN WHILE IN THE HOSPITAL: Dr. Bebo Kapadia * (dictated by Dona Johnson NP). PRIMARY DIAGNOSIS: Left great toe osteomyelitis. Status Post Left Great toe amputation. SECONDARY DIAGNOSES: 1. Diabetes. 2. Peripheral vascular disease. 3. Hyperlipidemia. 4. Gastroesophageal reflux disease. 5. Depression. STUDIES COMPLETED WHILE IN THE HOSPITAL: 1. He had a foot x-ray on 04/13/19, radiologist impression: Soft tissue swelling in the great toe. There is a fracture of the tuft of the distal phalanx of the great toe and possible osteomyelitis. He had an MRI of the left foot, findings consistent with osteomyelitis involving the distal phalanx of the great toe. In addition, there appears to be an abscess involving the the distal half of the distal phalanx. He had extremity arterial study, no compelling evidence of hemodynamics, significant inflow disease, or significant large vessel intrinsic lower extremity stenosis. Reduced arterial compressibility decreased the sensitivity of the exam. 2. He had an electrocardiogram, which showed sinus rhythm at a rate of 68. 3. He had a consultation by Orthopedics, and he had amputation of the left great toe. The patient was taken to the operating room where a transverse elliptical incision was made over the proximal phalanx of the left great toe. Operative procedure was disarticulation of the left great toe MTP joint. DISCHARGE MEDICATIONS: New home medications: He will be placed on, 1. Flagyl 500 mg p.o. t.i.d. x28 days. 2. Ceftriaxone 2 g IV x28 days. 3. Aspirin 325 mg p.o. daily. Continued home medications include: 1. Simvastatin 40 mg p.o. daily. 2. Sertraline 100 mg p.o. daily. 3. Pantoprazole 40 mg p.o. b.i.d. 4. Glimepiride 1 mg p.o. daily. HISTORY OF PRESENT ILLNESS AND HOSPITAL COURSE: Mr. Aponte is a 63-year-old male with a past medical history significant for type 2 diabetes, hyperlipidemia , peripheral vascular disease, GERD, who presented to the emergency room with complaints of redness and swelling to his left great toe. He underwent a routine lab work, which did not show an elevation in his white count. He did have an x-ray of his left great toe and an MRI, which were consistent with osteomyelitis. During the hospitalization, he was seen in consultation by Orthopedics, who recommended amputation of the left great toe distal phalanx which was completed during this hospitalization. He was also seen in consultation by Infectious Disease due to wound culture growing Gemella haemolysans, who recommended 28 days of antibiotic therapy, IV antibiotic therapy due to the osteomyelitis and bacteria growth. He was placed on ceftriaxone 2 g IV daily x28 days and Flagyl 500 mg p.o. t.i.d., for 28 days. During this hospitalization, the patient had no complaints. He denied any chest pain. He had no fever or chills. No change in his white count. His vital signs remained stable. At this time, he is stable for discharge home. REVIEW OF SYSTEMS: The patient denies any fever, chills, nausea, vomiting, or diarrhea. Denies any chest pain or shortness of breath. Denies any abdominal pain. Denies any urinary frequency, urgency, or pain with urination. He denies any current pain in his left foot. PHYSICAL EXAMINATION: General: At this time, Mr. Aponte is alert and oriented, resting in bed. He is in no acute distress. Vital Signs: Blood pressure 133/74, heart rate 66, respirations 16, O2 saturation 98%, temperature is 97.9. HEENT: Head is atraumatic, normocephalic. Eyes: EOMs are intact. Sclerae anicteric and not pale. Oral mucosa appeared to be moist. Neck is supple. Lungs are clear to auscultation bilaterally. No wheezes, rales, or rhonchi. Cardiac: S1, S2. Regular rate and rhythm. No murmurs, rubs, or gallops. Abdomen is soft and nontender. Bowel sounds are present x4. Extremities: He is able to move all 4 extremities. He does have a dressing that is dry and intact to his left foot. There is no clubbing or cyanosis. Skin : He does have a dressing dry and intact to his left foot. At this time, Mr. Aponte is stable for discharge home. DISCHARGE PLAN: Mr. Aponte will be discharged home. Activity as tolerated. 1. Osteomyelitis. The patient will continue with IV antibiotics, ceftriaxone 2 g IV daily for 28 days and Flagyl 500 mg p.o. t.i.d. for 28 days. He should follow up with his primary care provider in 1 to 2 weeks. He should follow up with Dr. Flores in 1 week. He should follow up with Infectious Disease, Dr. Norman, in 1 to 2 weeks. He will need weekly CBC, CMP, and CRP. [facility]. He should watch the area for signs of worsening infection, increased redness, drainage, foul-smelling odor, pain. He is to keep the dressing clean and dry. He is heel weightbearing only to the left foot. The patient is to continue with daily dressing changes to his left foot. The patient is to take aspirin 325 mg p.o. daily until further direction by Orthopedics. 3. Diabetes Type II. He can resume his glimepiride as previously prescribed. 4. Hyperlipidemia. He should continue on simvastatin as previously prescribed. 5. GERD. He should continue on omeprazole as previously prescribed. TIME SPENT: Time spent on this discharge was 45 minutes, greater than half the time was spent at the bedside reviewing discharge instructions and plans with the patient. I have discussed with my attending Dr. Bebo Kapadia. He is in agreement with my plan. DONA JOHNSON, MICHAEL [id number]/[facility] #: [id number]
== END 2019-04-17 13:30 | disposition home or self-care (01) | DRG 617 ==
LOC: ED 09:14 → MED 11:28
PROVIDERS: ADMIT Internal Medicine; ATTEND Internal Medicine
PROC: 0Y6Q0Z0 Detachment at Left 1st Toe, Complete, Open Approach (ICD-10-PCS; principal; 2019-04-15 15:00)
PROC: 05H533Z Insertion of Infusion Device into Right Subclavian Vein, Percutaneous Approach (ICD-10-PCS; 2019-04-16)
PROC: 3E03329 Introduction of Other Anti-infective into Peripheral Vein, Percutaneous Approach (ICD-10-PCS; 2019-04-16)
DX: E11.69 Type 2 diabetes mellitus with other specified complication (principal); M86.8X7 Other osteomyelitis, ankle and foot; M84.478A Pathological fracture, left toe(s), initial encounter for fracture; E11.40 Type 2 diabetes mellitus with diabetic neuropathy, unspecified; E11.621 Type 2 diabetes mellitus with foot ulcer; L97.529 Non-pressure chronic ulcer of other part of left foot with unspecified severity; B96.89 Other specified bacterial agents as the cause of diseases classified elsewhere; B95.61 Methicillin susceptible Staphylococcus aureus infection as the cause of diseases classified elsewhere; E78.5 Hyperlipidemia, unspecified; F32.9 Major depressive disorder, single episode, unspecified; K21.9 Gastro-esophageal reflux disease without esophagitis; L08.9 Local infection of the skin and subcutaneous tissue, unspecified; E66.01 Morbid (severe) obesity due to excess calories; Z68.32 Body mass index [BMI] 32.0-32.9, adult; Z79.84 Long term (current) use of oral hypoglycemic drugs; Z79.899 Other long term (current) drug therapy; Z88.1 Allergy status to other antibiotic agents; Z88.5 Allergy status to narcotic agent; Z88.8 Allergy status to other drugs, medicaments and biological substances; Z82.3 Family history of stroke; Z83.3 Family history of diabetes mellitus; Z82.5 Family history of asthma and other chronic lower respiratory diseases; Z80.0 Family history of malignant neoplasm of digestive organs; Z89.421 Acquired absence of other right toe(s)
CPT/HCPCS: 36415; 71045; 80048; 80053; 82565; 83036; 83605; 84520; 85025; 85610; 85730; 86140; 87040; 87070; 87073; 87077; 87205; 87640; 87641; 88305; 88311; 90686; 93005; 93922; 96374; 96375; 99284; A9270-GY; A9579; C1751; G8978-GP-CH; G8979-GP-CH; G8980-GP-CH; J0692; J0696; J1644; J2250; J2704; J3490